=== PATIENT | female | born 1960 | race Caucasian/White ===

== ENCOUNTER → 2017-11-22 | Outpatient (CLI) | payer BC, OTHER ==
[~2017-11-22] MED LIST: ASPEC81 PO; CMD25 PO; LEVO-366 PO; OXYC-57 PO; XNX25 PO
== END | disposition home or self-care (01) ==
LOC: C.RDSM 15:06
PROVIDERS: ATTEND Orthopaedic Surgery Sports Medicine
DX: R52 Pain, unspecified (principal)

== ENCOUNTER 2022-11-07 05:05 | Observation (INO) ==
--- NOTE | 2022-10-05 12:52 | PAT Medication Instructions ---
Medication Instructions Date of Service October 05, 2022 Home Medications metformin 500 mg tablet 1 tab PO BID atorvastatin 20 mg tablet 20 mg PO HS escitalopram oxalate 20 mg tablet 20 mg PO HS apple cider vinegar 500 mg tablet 500 mg PO QAM hydroxyzine HCl 25 mg tablet 25 mg PO BID PRN Anxiety multivitamin 1 tab PO QAM DO NOT take the morning of surgery multivitamin 1 tab PO QAM apple cider vinegar 500 mg tablet 500 mg PO QAM metformin 500 mg tablet 1 tab PO BID hydroxyzine HCl 25 mg tablet 25 mg PO BID PRN Anxiety Take evening before surgery metformin 500 mg tablet 1 tab PO BID hydroxyzine HCl 25 mg tablet 25 mg PO BID PRN Anxiety atorvastatin 20 mg tablet 20 mg PO HS escitalopram oxalate 20 mg tablet 20 mg PO HS Other Notes If you have any questions please call us at [phone] or [phone] or [phone] or [phone]
--- NOTE | 2022-10-31 12:21 | Anesthesiology Consultation ---
Date of Service October 31, 2022 Assessment & Plan (1) Encounter for pre-operative examination: - Check BSG AM DOS - COVID screening: Per assessment on 10/31: No known COVID-19 positive contacts or current COVID-19 related symptoms. Travel screen negative. Patient vaccinated. At surgeon discretion if preop Covid testing being done. - Outpatient joint assessment: Pt currently scheduled for inpatient pathway. If surgeon requests review for outpatient joint pathway, patient is not recommended candidate for outpatient joint program from anesthesia standpoint. - Hx glidescope intubation: S/P Right TKA (04/23/18): Done under [place] > Glidescope intubation, ETT 7.5 at [facility]. No issues noted per post-op anesthesia progress note. - Patient acceptable risk for surgery pending surgeon-ordered PCP preop evaluation (Connie Stroud/Dr. Vazquez, appt 11/03). Chart Review Chart Review: Patient seen in Pre Admission Testing Teaching & Discussion Pre-Anesthesia Teaching/Discussion Notes: Instructed NPO after midnight before surgery,except medications with 15 cc of water. Medication instructions provided according to the PAT guidelines. History Surgery Operation Date: 11/07/22 07:00 Proposed Procedures p Left Total Knee Arthroplasty - Jonn Marcello Hernandez MD Operation Date: 11/07/22 07:00 Proposed Procedures p Left Total Knee Arthroplasty - Jonn Marcello Hernandez MD Height/Weight Height: 5 ft 6 in Weight: 117.1 kg Allergies Allergy/AdvReac Type Severity Reaction Status Date / Time celecoxib [From Celebrex] Allergy Severe Anaphylaxis Verified 10/05/22 11:18 Penicillins Allergy Severe Anaphylaxis Verified 10/05/22 11:18 Sulfa (Sulfonamide Allergy had Verified 10/05/22 11:18 Antibiotics) reaction to Celebrex duloxetine Allergy Severe Anaphylaxis Uncoded 10/31/22 09:00 pregabalin AdvReac Severe altered Uncoded 10/31/22 09:00 mental status Medications Home Medications Medication Instructions Recorded Confirmed Last Taken metformin 500 mg tablet 1 tab PO BID 04/02/18 10/05/22 04/21/18 22:00 atorvastatin 20 mg tablet 20 mg PO HS 04/23/18 10/05/22 Unknown escitalopram oxalate 20 mg tablet 20 mg PO HS 04/23/18 10/05/22 Unknown apple cider vinegar 500 mg tablet 500 mg PO QAM 10/05/22 10/05/22 Unknown hydroxyzine HCl 25 mg tablet 25 mg PO BID PRN Anxiety 10/05/22 10/05/22 Unknown multivitamin 1 tab PO QAM 10/05/22 10/05/22 Unknown Past Medical History Medical History Acid reflux Anxiety and depression Diabetes mellitus, type II NIDDM Dyslipidemia History of COVID-10 Jun 2021 > not hospitalized HTN (hypertension) Borderline, no meds Kidney stones passed on own Morbid obesity Pancreatic cyst Rheumatoid arthritis no meds Exercise / Class Metabolic Activity III < 4 Walking/Shop/Light housework Past Family History Family History Other Coronary heart disease Diabetes Past Surgical History Surgical History Fusion of spine ACDF History of anesthesia reaction "Awareness" with R MADELYN and dental procedures. "Very bad" post-op headaches - "every time" Patient states that the week following surgery, felt like she was very cold/chills and had hot flashes/hot feeling intermittently- occurs "every time." No intervention needed per patient/symptoms resolved within a week History of bilateral hip replacements History of tonsillectomy History of tooth extraction Hx of cervical spine surgery Hx of cholecystectomy Hx of oral surgery Hx of total knee replacement Right TKA (04/23/18): Done under [place] > Glidescope intubation, ETT 7.5 at [facility]. No issues noted per post-op anesthesia progress note. Past Anesthesia History No Family Hx of Anesthesia Complications (except sister- PONV) and Other "Awareness" with R MADELYN and dental procedures. "Very bad" post-op headaches - "every time" Patient states that the week following surgery, felt like she was very cold/chills and had hot flashes/hot feeling intermittently- occurs "every time." No intervention needed per patient/symptoms resolved within a week History of PONV No Hx of PONV and No Hx of Motion Sickness Social History Smoking Status: Former smoker Do You Dip or Chew Tobacco: No Smoking End Date: Quit 30 years ago Hx Alcohol Use: Yes Alcohol type: hard liquor alcohol intake frequency: a few times a month Hx Substance Use: No substance use type: does not use Review of Systems Patient denies chest pain, shortness of breath, fever, chills, cough, wheezing, palpitations. Physical Exam Vital Signs VITALS BP 128/84 P 79 TEMP 98.0 SP02 97%RA RESP 16 PHYSICAL Full cervical extension range of motion. Full TMJ range of motion. TMD 3.5 finger breaths Mallampati Score 1 Dentition: missing molars, + implants Lungs: clear throughout to auscultation Cardiac: regular rate and rhythm, no murmurs noted Spine: normal Carotid arteries: negative bruit Extremities: no LE edema Lab Results Anesthesia Preop Results Results Anesthesia Widget: WBC 9.65 K/ul (4.8-10.8) 10/31/22 Hgb 13.5 g/dl (12.0-16.0) 10/31/22 Hct 41.2 % (37.0-47.0) 10/31/22 Plt 242 K/uL (130-400) 10/31/22 Na 141 mmol/L (136-145) 10/31/22 K 4.2 mmol/L (3.5-5.1) 10/31/22 Cl 110 mmol/L (98-107) H 10/31/22 CO2 21 mmol/L (21-32) 10/31/22 BUN 19 mg/dl (6-23) 10/31/22 Creat 0.89 mg/dl (0.6-1.2) 10/31/22 Glucose Level 114 mg/dl (70-99(Fasting)) H 10/31/22 PT 10.3 Seconds (9.0-12.0) 10/31/22 PTT 27.1 Seconds (21.0-31.0) 10/31/22 INR 1.0 (0.9-1.1) 10/31/22 HA1c 7.1 % (4.5-5.6) H 10/31/22 Urine Color Yellow 10/31/22 Urine Appearance Clear (Clear) 10/31/22 Urine pH 6.0 (4.5-7.5) 10/31/22 Urine Specific [place] 1.026 (1.000-1.030) 10/31/22 Urine Protein Negative (Negative) 10/31/22 Urine Glucose (UA) Negative (Negative) 10/31/22 Urine Ketones Negative (Negative) 10/31/22 Urine Blood Negative (Negative) 10/31/22 Urine Nitrite Negative (Negative) 10/31/22 Urine Bilirubin Negative (Negative) 10/31/22 Urine Urobilinogen Negative (Negative) 10/31/22 Urine Leukocyte Esterase Negative (Negative) 10/31/22 Blood Type A Positive 10/31/22 Antibody Screen NEGATIVE 10/31/22 Testing Electrocardiogram Date: 10/31/22 Findings: + NSR @ (80) Cervical Spine Date: 10/31/22 FINDINGS: Anterior plate and screw fusion with discectomy changes noted at C5- C7. Degenerative bony fusion at the C4-C5 levels. Moderate to severe multilevel facet arthrosis. Straightening of the normal cervical lordosis. No acute fracture, subluxation or endplate erosion. No prevertebral edema. IMPRESSION: No acute fracture or subluxation. Degenerative and postoperative changes as above. COVID-19 Risk Screen Screening Information COVID-19 Screen Date: 10/31/22 Exposure 21 Days Family/Household +COVID Last 21 Days: No Exposure 10 Days Any COVID Exposure Last 10 Days: No Symptoms Last 10 Days Experienced COVID Sx Last 10 Days: No + COVID 0-90 Days COVID + in Last 0-90 Days: No
[2022-11-07] MEDS ORDERED: TRANEXAMIC ACID 1,000 MG **IV Intra-op IV SCH (06:00)
[2022-11-07] MEDS ORDERED: ROPIVACAINE 0.5% HCL/PF 150 MG, BUPIVACAINE 0.75% MPF 20 ML, EPINEPHrine 0.15 MG, Ketor... INFIL SCH (06:00)
[2022-11-07] MEDS ORDERED: LR 60ML/HR IV SCH (06:00)
[2022-11-07] MEDS ORDERED: VANCOMYCIN HCL 1,750 MG in SODIUM CHLORIDE 0.9% 250 ML IV SCH (06:00)
[2022-11-07] MEDS ORDERED: Scopolamine 1 MG TDSY TD SCH (06:00)
[2022-11-07] MEDS ORDERED: LR 500ML BOLUS, THEN 15ML/HR IV SCH (06:00)
[2022-11-07] MEDS ORDERED: VANCOMYCIN HCL 1,750 MG in SODIUM CHLORIDE 0.9% 500 ML IV SCH ×2 (06:00→17:45)
[2022-11-07] MEDS ORDERED: TRANEXAMIC ACID 1,000 MG **IV Pre-op IV SCH (06:00)
[2022-11-07] MEDS ORDERED: ROPIVACAINE 0.5% 5 MG/ML 30 ML VIAL ONE ×2 (06:23→12:01)
[2022-11-07] MEDS ORDERED: BUPIVACAINE 0.5 % 5 MG/1 ML PF 10ML VIAL ONE (06:23)
--- NOTE | 2022-11-07 06:35 | History & Physical Bridge Note ---
Date of Service November 07, 2022 History & Physical Bridge Note I have examined the patient, reviewed the History & Physical and in the interval since the performance of the History & Physical I have noted the following changes of clinical significance: no changes noted Patient is aware of the risks, is asymptomatic, and tested negative for COVID- 19.
[2022-11-07] MEDS ORDERED: MIDAZOLAM HCL 1 MG/ML 2ML VIAL ONE ×2 (06:44)
[2022-11-07] MEDS ORDERED: fentaNYL citrate PF 100 MCG/2 ML VIAL ONE (06:45)
[2022-11-07] MEDS ORDERED: ORTHO JOINT ANESTHETIC ONE (06:58)
[2022-11-07] MEDS ORDERED: ALBUTEROL 0.083% NEBU SOLN 3 ML VIAL INH PRN (07:11)
[2022-11-07] MEDS ORDERED: ATROPINE SULFATE 0.1 MG/ML 10ML SYR IV PRN ×2 (07:11→10:48)
[2022-11-07] MEDS ORDERED: ACETAMINOPHEN 1,000 MG/100 ML VIAL IV STA (07:11)
[2022-11-07] MEDS ORDERED: PROMETHAZINE HCL 12.5 MG in SODIUM CHLORIDE 0.9% 50 ML IV PRN (07:11)
[2022-11-07] MEDS ORDERED: LABETALOL HCL IV 5 MG/ML 20ML IV PRN (07:11)
[2022-11-07] MEDS ORDERED: ePHEDrine sulfate 50 MG/ML AMP IV PRN ×2 (07:11→10:48)
[2022-11-07] MEDS ORDERED: ONDANSETRON INJ 2 MG/ML 2 ML VIAL IV PRN ×2 (07:11→13:34)
[2022-11-07] MEDS ORDERED: KETAMINE 50 MG/5 ML SYRINGE ONE (07:31)
[2022-11-07] MEDS ORDERED: HYDROmorphone INJ 2 MG/ML SYR/VIAL ONE (07:32)
[2022-11-07] MEDS ORDERED: ONDANSETRON INJ 2 MG/ML 2 ML VIAL ONE (07:35)
[2022-11-07] MEDS ORDERED: PROPOFOL IV EMULSION 10 MG/ML 20 ML VIAL IV ONE (07:35)
[2022-11-07] MEDS ORDERED: LIDOCAINE 2% 20 MG/ML 5 ML SYR IV ONE (07:35)
[2022-11-07] MEDS ORDERED: DEXAMETHASONE SOD INJ 4 MG/ML VIAL ONE (07:35)
[2022-11-07] MEDS ORDERED: NEOSTIGMINE METHYLSULFATE 1 MG/ML 10ML VIAL ONE (07:37)
[2022-11-07] MEDS ORDERED: GLYCOPYRROLATE 0.2 MG/ML VIAL ONE (07:37)
[2022-11-07] MEDS ORDERED: ROCURONIUM BROMIDE 10 MG/ML 5 ML VIAL IV ONE (07:37)
--- NOTE | 2022-11-07 09:48 | Post Operative Brief Note ---
Immediate Post Op Note v1 Date of Surgery November 07, 2022 Pre & Post Diagnosis Operation Date: 11/07/22 07:00 Pre-Op Diagnosis: Left Knee Osteoarthritis Post-Op Diagnosis: Left Knee Osteoarthritis I identified the patient and participated in the time-out.: Yes Procedure Operation Date: 11/07/22 07:00 Actual Procedures p Left Total Knee Arthroplasty(Left) - Jonn Hernandez MD Surgeon Jonn Hernandez MD Program Eligibility Specialist Dov Lui PA-C & Starr Rodriguez DO Estimated Blood Loss 50 Findings Consistent with Post-Op Diagnosis Fluids 1400 cc Specimens Left knee contents Anesthesia Type General Complications none
--- NOTE | 2022-11-07 09:48 | Operative Report ---
Post Operative Report Pre & Post Diagnosis Operation Date: 11/07/22 07:00 Pre-Op Diagnosis: Left Knee Osteoarthritis Post-Op Diagnosis: Left Knee Osteoarthritis I identified the patient and participated in the time-out.: Yes Procedure Operation Date: 11/07/22 07:00 Actual Procedures p Left Total knee replacement, imageless computer assisted navigation (Left) - Jonn Hernandez MD Surgeon Jonn Hernandez MD Director Workforce Management Dov Lui PA-C & Starr Rodriguez DO Estimated Blood Loss 50 Findings See Below Examined Under Anesthesia: ROM -- There was 0 degrees to 125 degrees of flexion Ligamentous examination -- revealed stable Andressa, posterior drawer, varus and valgus stress at 0 and 30 degrees. [place] Grade IV changes of medial & Patellofemoral compartments. Grade II- III changes lateral compartment Fluids 1400 cc Specimens Left knee contents Anesthesia Type General Complications none Indications This is a 62-year-old female who has clinical and radiographic findings consiste nt with osteoarthritis of the a left knee. I recommended that a left total knee replacement be performed. The patient understands the risks of surgery, which include but not limited to: bleeding, infection, re-operation, damage to nerves and arteries, continued knee pain, knee stiffness, DVT, and . The patient understands all of these instructions and explanations, all of his questions hav e been satisfactorily addressed and the patient has elected to proceed. Informed consent was signed. Description of Procedure IMPLANTS: 1. Femur: Triathlon #4 Left PS. 2. Tibia: Triathlon #3 [place]. 3. Insert: Triathlon #3 x 9 mm PS X3 poly. 4. Patella: Triathlon S27 x 8 mm X3 poly. 5.Palacos + Gentamicin cement. Dov Lui PA-C is assisting with positioning, retracting, and closure due to fellow (Starr Rodriguez DO) not available until we started preparing the femur. Procedure: The patient was taken to the Operating Room and placed in the supine position after general anesthesia was administered. My initials and a multidisciplinary time-out were used to identify the left leg as the correct operative limb. A tourniquet was placed high in the thigh. Prior to the incision, intravenous Vancomycin was given. The left leg was then prepped and draped in a standard sterile fashion. An Esmarch was used to exsanguinate the leg and the tourniquet was inflated to 250 mmHg. The planned mid-line 20 cm incision was created exposing the extensor mechanism. The medial parapatellar arthrotomy was made and the patella was everted. The patella was addressed first. It was prepared by reaming from 24 mm down to 14 mm. An S27 button was found to fit best. The peg holes were made in the standard fashion. The femur was addressed next and using computer assisted OrthoAlign with 3 degrees of flexion and 0 degrees of valgus, removing 9 mm in the standard fashion for the distal cut. The cut was made and the 4-in-1 cutting block for a size 4 femur was placed. These cuts and the cuts to place the box were made in the standard fashion. Our attention was then drawn to the tibia cut with using imageless computer assisted OrthoAlign, taking 2 mm from the medial low side. There was sufficient extension and flexion gap to fit a 9 mm spacer. A #3 Tibial baseplate fit well. A trial with a 9 mm spacer showed excellent stability in both flexion and extension, with good ligament balance, and thumbs free patellar tracking. Range of motion of 0-130 degrees. The tibial baseplate was prepped for the keel and stem. All surfaces were copiously irrigated prior to placement of the components. The femoral component followed by Tibial baseplate were cemented in place and the 9 mm X3 poly was placed. Next, the patellar button was placed using a second batch of cement. Once the cement had cured, the range of motion and stability were unchanged. The tourniquet was deflated. Hemostasis was obtained. 90 ml of total knee cocktail were injected into the soft tissues and periosteum. The extensor mechanism was closed with 1-0 Vicryl and 0 Stratafix with the knee bent approximately 60 degrees in a standard fashion. The subcutaneous layer was closed with 3-0 Vicryl. The skin was closed with Zipline and shield. The limb was cleaned and dried. 4x4 dressing was placed over top followed by ABDs, sterile Webril, and a foot to thigh Chente bandage. The patient was then transferred to the Recovery Room in stable condition. The sponge and needle counts were correct. POST-OP INSTRUCTIONS: The patient will be WBAT. The patient will be admitted to the hospital. Labs will be obtained during the stay. DVT prophylaxis will included aspirin for 6 weeks, TEDs, and mechanical foot pumps. The dressing will be changed prior to their discharge or postop day #2 and covered with a Silverlon dressing, whichever comes first as long as the incision as dry. I attest to the content of the Intraoperative Record and any orders documented therein. Any exceptions are noted below.
--- NOTE | 2022-11-07 10:12 | Anesthesiology Progress Note ---
Date of Service November 07, 2022 Anesthesia Post Procedure Vital Signs Vital Signs: Temp Pulse Resp BP Pulse Ox O2 Del Method 11/07/22 05:47 36.8 C 85 20 164/96 H 94 Room Air Transfer of Care Handoff Completed per policy Notes Mental Status: alert / awake / arousable Patient Amnestic to Procedure: Yes Nausea / Vomiting: adequately controlled Pain: adequately controlled Airway Patency, RR, SpO2: stable & adequate BP & HR: stable & adequate Hydration State: stable & adequate Anesthetic Complications: no major complications apparent and Pt Satisfied with anesthetic care
--- NOTE | 2022-11-07 10:20 | Operative Report ---
Post Operative Report Pre & Post Diagnosis Operation Date: 11/07/22 07:00 Pre-Op Diagnosis: Left Knee Osteoarthritis Post-Op Diagnosis: Left Knee Osteoarthritis I identified the patient and participated in the time-out.: Yes Procedure Operation Date: 11/07/22 07:00 Actual Procedures p Left Total Knee Arthroplasty(Left) - Jonn Marcello Hernandez MD Surgeon David Obstetrical Tech Dov Lui PA-C & Starr Rodriguez DO Estimated Blood Loss 50 Findings Consistent with Post-Op Diagnosis Specimens See attending dictation Disposition Accompanied Patient To Recovery: Yes Disposition: Recovery Room Description of Procedure Patient was taken to the operating room where anesthesia was administered. Patient was prepped and draped in the usual sterile fashion. Please see attending's operative report for specifics of the procedure. I was present for the entire case from initial patient positioning through final wound closure. Assistance was provided in tissue retraction, hemostasis, and final wound closure. Patient was taken to the recovery room in satisfactory condition. I attest to the content of the Intraoperative Record and any orders documented therein. Any exceptions are noted below.
[2022-11-07] MEDS: fentaNYL citrate PF 100 MCG/2 ML VIAL IV PRN ×4 (10:23→10:38)
[2022-11-07] MEDS ORDERED: ACETAMINOPHEN 1000 MG/100 ML IV IV ONE (10:37)
[2022-11-07] MEDS ORDERED: HYDROmorphone INJ 1 MG/ML SYRINGE ONE (10:43)
[2022-11-07] MEDS: HYDROmorphone INJ 1 MG/ML SYRINGE IV PRN ×6 (10:44→11:15)
[2022-11-07] MEDS ORDERED: KETOROLAC 30 MG/ML VIAL IV ONE (10:48)
[2022-11-07] MEDS ORDERED: HYDROmorphone Bolus from PCA IV STA (11:14)
[2022-11-07] MEDS ORDERED: HYDROmorphone Bolus from PCA IV PRN (11:14)
[2022-11-07] MEDS ORDERED: NALOXONE HCL 0.4 MG/1 ML VIAL/CARP IV PRN ×2 (11:14→13:34)
[2022-11-07] MEDS ORDERED: HYDROmorphone PCA 30 MG/30 ML IV PRN (11:14)
--- NOTE | 2022-11-07 12:18 | Orthopedic Progress Note ---
Date of Service November 07, 2022 Assessment & Plan (1) Rheumatoid arthritis: Plan: POD #0 s/p L TKA, seen in PACU as she was having severe pain. Resume diet. WBAT LLE. OOB to chair. Adjusted pain control, added OxyContin 10mg BID x 3days, Toradol 15 mg q6h x 3 days, continue Oxycodone and Tylenol as written. Anesthesia to provide adductor block, patient is now agreeable. Check labs tomorrow. DVT prophylaxis: TEDs 3 weeks, foot pumps while in hospital, Lovenox 30 mg BID x 3weeks start tonight, followed by ASA 81 mg BID for 3 weeks. PT/OT. Hospitalist consult for medical management. Pharmacy consult for glycemic control. D/C planning. Present on Admission?: Yes Subjective Severe left knee pain Physical Exam Physical Exam: LLE: Sensation to light touch intact. Moving toes and ankle up & down. BCR < 2 sec. Calf soft and non-tender. Dressing clean, dry, intact. Results & Data Vital Signs (Past 12 Hours) Vital Signs Temp Pulse Pulse Resp BP Pulse Ox O2 Del Method 11/07/22 11:55 99 H 13 101/82 93 Nasal Cannula 11/07/22 11:45 93 H 16 164/72 H 97 Nasal Cannula 11/07/22 12:05 102 H 22 149/104 H 93 Nasal Cannula 11/07/22 11:35 95 H 19 164/77 H 96 Nasal Cannula 11/07/22 11:25 92 H 15 174/77 H 95 Nasal Cannula 11/07/22 11:15 88 15 171/78 H 94 Nasal Cannula 11/07/22 11:05 37.2 C 83 15 165/83 H 95 Oxymask 11/07/22 10:55 37.2 C 84 17 176/86 H 95 Oxymask 11/07/22 10:45 37.2 C 104 H 21 174/114 H 96 Oxymask 11/07/22 10:35 37.2 C 103 H 11 L 188/108 H 96 Oxymask 11/07/22 10:25 37.2 C 101 H 14 192/104 H 96 Oxymask 11/07/22 10:16 37.2 C 109 H 15 183/118 H 96 Oxymask 11/07/22 05:47 36.8 C 85 20 164/96 H 94 Room Air O2 Flow Rate 11/07/22 11:55 2 11/07/22 11:45 5 11/07/22 12:05 2 11/07/22 11:35 3 11/07/22 11:25 3 11/07/22 11:15 3 11/07/22 11:05 5 11/07/22 10:55 5 11/07/22 10:45 5 11/07/22 10:35 8 11/07/22 10:25 8 11/07/22 10:16 8 11/07/22 05:47 Diagnostic Findings Laboratory Results ESR 62 mm/hr (0-30) H 11/07/22 05:31 POC Glucose 171 mg/dl (70-99) H 11/07/22 10:19 SARS-CoV-2, RNA, NAAT NEGATIVE (NEGATIVE) 11/07/22 05:28 Reviewed AP and Lateral Left knee expected findings left cemented TKA.
--- NOTE | 2022-11-07 12:38 | Anesthesiology Progress Note ---
Date of Service November 07, 2022 Assessment & Plan Admission and Anticipated Discharge Date Admission Date: Addyctor canail block done postop, 30 cc .5% Ropivacaine. Tolerated well, great pain releif Subjective Patient was fully consented and consent signed by for adductor canal block postop. Physical Exam Vital Signs: Last Vital Signs Temp 37.2 C 11/07/22 11:05 Pulse 97 H 11/07/22 12:15 Resp 12 11/07/22 12:15 BP 146/70 H 11/07/22 12:15 Pulse Ox 96 11/07/22 12:15 O2 Del Method Nasal Cannula 11/07/22 12:15 O2 Flow Rate 2 11/07/22 12:15 Neck: normal visual inspection Respiratory: normal respiratory effort; no respiratory distress Auscultation: lungs clear to auscultation bilaterally Cardiovascular: Rate/Rhythm: regular rate and regular rhythm Psychiatric: Orientation: alert and oriented x 3 Results & Data ([facility]) Medications Administered Fentanyl Citrate (Fentanyl Citrate Pf 100 Mcg/2 Ml Vial) 25 mcg IV Q5M PRN PRN Reason: PACU Use Only-Pain Stop: 11/07/22 15:11 Last Admin: 11/07/22 10:38 Dose: 25 mcg Documented By: [facility] Admin: 11/07/22 10:33 Dose: 25 mcg Documented By: [facility] Admin: 11/07/22 10:28 Dose: 25 mcg Documented By: [facility] Admin: 11/07/22 10:23 Dose: 25 mcg Documented By: [facility] Hydromorphone HCl (Hydromorphone Inj 1 Mg/Ml Syringe) 0.25 mg IV Q5M PRN PRN Reason: PACU Use Only-Pain Stop: 11/07/22 18:52 Last Admin: 11/07/22 11:15 Dose: 0.25 mg Documented By: [facility] Admin: 11/07/22 11:05 Dose: 0.25 mg Documented By: [facility] Admin: 11/07/22 11:00 Dose: 0.25 mg Documented By: [facility] Admin: 11/07/22 10:54 Dose: 0.25 mg Documented By: [facility] Admin: 11/07/22 10:49 Dose: 0.25 mg Documented By: [facility] Admin: 11/07/22 10:44 Dose: 0.25 mg Documented By: [facility] Lactated Ringer's (Lr) 1,000 mls @ 60 mls/hr IV .[id number] JENNIFER Stop: 11/07/22 22:39 Last Admin: 11/07/22 05:45 Dose: Not Given Documented By: ARACELY Tranexamic Acid (Tranexamic Acid / 0.7% Nacl) 1,000 mg in 100 mls @ 600 mls/hr IV TODAY@0600 JENNIFER Stop: 11/07/22 18:00 Last Admin: 11/07/22 07:14 Dose: 600 mls/hr Documented By: MAXIMUS Tranexamic Acid (Tranexamic Acid / 0.7% Nacl) 1,000 mg in 100 mls @ 600 mls/hr IV TODAY@0600 JENNIFER Stop: 11/07/22 18:00 Last Admin: 11/07/22 09:17 Dose: 600 mls/hr Documented By: GISEL Lactated Ringer's (Lr) 1,000 mls @ 15 mls/hr IV .[id number] JENNIFER Stop: 11/07/22 18:00 Last Infusion: 11/07/22 07:14 Dose: 0 mls/hr Documented By: Admin: 11/07/22 05:40 Dose: 15 mls/hr Documented By: ARACELY Vancomycin HCl 1,750 mg/ (Sodium Chloride) 535 mls @ 200 mls/hr IV PREOP JENNIFER Stop: 11/08/22 05:59 Last Admin: 11/07/22 05:44 Dose: 200 mls/hr Documented By: ARACELY Labetalol HCl (Labetalol Hcl Iv 5 Mg/Ml 20ml) 5 mg IV Q5M PRN PRN Reason: PACU Use-SBP>160 or DBP>100 Stop: 11/07/22 15:12 Last Admin: 11/07/22 10:47 Dose: 5 mg Documented By: AUDI Co-signed By: FARHAD Scopolamine (Scopolamine 1 Mg Tdsy) 1 mg TD PREOP JENNIFER Stop: 11/07/22 18:00 Last Admin: 11/07/22 06:25 Dose: 1 mg Documented By: ARACELY Results 6 Minute Walk: No Data to Display
--- NOTE | 2022-11-07 12:39 | Anesthesiology Progress Note ---
Date of Service November 07, 2022 Anesthesia Post Procedure Vital Signs Vital Signs: Temp Pulse Pulse Resp BP Pulse Ox O2 Del Method 11/07/22 12:30 94 H 12 167/84 H 93 Nasal Cannula 11/07/22 11:55 99 H 13 101/82 93 Nasal Cannula 11/07/22 11:45 93 H 16 164/72 H 97 Nasal Cannula 11/07/22 12:15 97 H 12 146/70 H 96 Nasal Cannula 11/07/22 12:05 102 H 22 149/104 H 93 Nasal Cannula 11/07/22 11:35 95 H 19 164/77 H 96 Nasal Cannula 11/07/22 11:25 92 H 15 174/77 H 95 Nasal Cannula 11/07/22 11:15 88 15 171/78 H 94 Nasal Cannula 11/07/22 11:05 37.2 C 83 15 165/83 H 95 Oxymask 11/07/22 10:55 37.2 C 84 17 176/86 H 95 Oxymask 11/07/22 10:45 37.2 C 104 H 21 174/114 H 96 Oxymask 11/07/22 10:35 37.2 C 103 H 11 L 188/108 H 96 Oxymask 11/07/22 10:25 37.2 C 101 H 14 192/104 H 96 Oxymask 11/07/22 10:16 37.2 C 109 H 15 183/118 H 96 Oxymask 11/07/22 05:47 36.8 C 85 20 164/96 H 94 Room Air O2 Flow Rate 11/07/22 12:30 2 11/07/22 11:55 2 11/07/22 11:45 5 11/07/22 12:15 2 11/07/22 12:05 2 11/07/22 11:35 3 11/07/22 11:25 3 11/07/22 11:15 3 11/07/22 11:05 5 11/07/22 10:55 5 11/07/22 10:45 5 11/07/22 10:35 8 11/07/22 10:25 8 11/07/22 10:16 8 11/07/22 05:47 Pain Intensity Left Knee: Pain Intensity: 7 Transfer of Care Handoff Completed per policy Notes Mental Status: alert / awake / arousable Patient Amnestic to Procedure: Yes Nausea / Vomiting: adequately controlled Pain: adequately controlled Airway Patency, RR, SpO2: stable & adequate BP & HR: stable & adequate Hydration State: stable & adequate Anesthetic Complications: no major complications apparent and Pt Satisfied with anesthetic care
[2022-11-07] MEDS ORDERED: hydrOXYzine HCl 25 MG TAB PO PRN (13:34)
[2022-11-07] MEDS ORDERED: VANCOMYCIN CONSULT ACTIVE PRN (13:34)
[2022-11-07] MEDS ORDERED: bisacodyL 10 MG SUPP PR PRN (13:34)
[2022-11-07] MEDS ORDERED: HYDROmorphone INJ 0.5 MG/0.5 ML SYR IV PRN (13:34)
[2022-11-07] MEDS ORDERED: KETOROLAC TROMETHAMINE 15 MG/ML VIAL IV PRN (13:34)
[2022-11-07] MEDS ORDERED: MAGNESIUM HYDROXIDE SUSP 30 ML UDC PO PRN (13:34)
[2022-11-07] MEDS ORDERED: HYDROmorphone INJ 1 MG/ML SYRINGE IV PRN (13:34)
[2022-11-07] MEDS ORDERED: PHARMACY GLYCEMIC MGMT CONSULT PRN (13:34)
[2022-11-07] MEDS ORDERED: traMADol HCL 50 MG TABLET PO PRN (13:34)
[2022-11-07] MEDS: SODIUM CHLORIDE 0.9% 1000ML 1,000 ML IV SCH ×2 (13:49→13:56)
[2022-11-07] MEDS: oxyCODONE HCL 10 MG TABCR (OxyCONTIN) PO SCH (13:56)
[2022-11-07] MEDS ORDERED: LANTUS PER UNIT CHARGE SC ONE (14:15)
--- NOTE | 2022-11-07 14:20 | Pharmacy Report ---
Pharmacy Glycemic Short Note 2 - Date of Service November 07, 2022 - Glycemic Short BSG Results (Last 24 hours): 11/07/22 11/07/22 11/07/22 05:54 10:19 13:41 POC Glucose 137 H 171 H 184 H OUTPATIENT ANTIDIABETIC REGIMEN: * metformin ASSESSMENT: * 62 year old s/p L TKA - type 2 diabetic managed on metformin at home. Pharmacy consulted for glycemic management. * Patient received IV dexamethasone intraoperatively therefore anticipate steroid induced hyperglycemia. Postop BSGs elevated 170-180s - will give one time dose of Lantus 0.2 units/kg to help cover steroid effects. Plan to start novolog stress 2/3 PLAN FOR INPATIENT GLYCEMIC CONTROL: * Hold outpatient oral diabetes medications * Basal insulin * Lantus 20 units x 1 * Bolus insulin * NovoLog per scale ACHS or Q6hrs while NPO * Goal Range: Low 110 mg/dL - High 140 mg/dL * Correction Factor: 15 mg/dL/unit * Nutritional / Prandial insulin per carb ratio of 1 unit per 6 grams CHO consumed
--- NOTE | 2022-11-07 14:26 | Hospitalist Consultation ---
Date of Consultation November 07, 2022 Assessment & Plan (1) S/P total knee arthroplasty: - Pain management, bowel regimen and DVT ppx per the primary team - PT/OT consults, pt is planning on outpatient therapy - Follow am CBC to monitor for acute blood loss hemoglobin is 13.5 (2) Diabetes mellitus, type II: - ISS with accuchecks achs - Last A1C 7.1 on 10/23/22 - Holding metformin, last Trulicity on 10/30, she did not take it yesterday as she was instructed not to take any medications 48 hours prior to surgery. (3) Morbid obesity: - Diet and exercise to be encouraged throughout hospital stay, BMI of 41.4 (4) HTN (hypertension): -BP is elevated at 160s/80, patient is not on any antihypertensive at home, monitor, possible that she may need medication, follow-up with PCP after discharge (5) Dyslipidemia: - Cont atorvastatin 20 mg HS (6) Anxiety and depression: - Cont hydroxyzine 25 mg BID prn and lexapro 20 mg daily DVT ppx: teds, scds CODE: FULL CODE Dispo: From home Thank you for involving us in the care of Ms. Mcnulty. If you have any questions or concerns please do not hesitate to call. At this time medicine will follow along. A total of 37 minutes were spent with greater than 50% of that time face to face with the patient, personally reviewing all current laboratories, imaging studies, past medication reconciliation, outpatient chart review, and discussion with specialists to collaborate care for the patient with attending. Please see attending documentation for corrections and/or additions. Supervising Physician Co-Signing Physician Notes Patient was seen and examined independently. chart reviewed. Case discussed with NICOLE History of Present Illness Reason for Consultation: Medical management Requesting Physician: Dr. Hernandez Attending Physician: Jonn Hernandez MD History of Present Illness This is a 62-year-old female with PMHx of DM type II, obesity, MDD, multiple previous surgical procedures, who presents to the hospital for an elective left total knee arthroplasty by Dr. Hernandez on 11/07/2022. Patient reports doing well, her sister is present at bedside. She lives at home with her but will have extra help from her sister when she goes home. Reports having her other knee (the right knee) replaced previously so has a good idea of what to anticipate after having her left knee operated on today. Had recent bowel movement yesterday, reports that she has some phlegm and a cough status post intubation/surgery but that it is improving with lifesavers and water. Her pain is well controlled, denies any numbness, is able to move her ankles and toes without difficulty. Allergies Allergy/AdvReac Type Severity Reaction Status Date / Time celecoxib [From Celebrex] Allergy Severe Anaphylaxis Verified 11/07/22 05:34 Penicillins Allergy Severe Anaphylaxis Verified 11/07/22 05:34 Sulfa (Sulfonamide Allergy had Verified 11/07/22 05:34 Antibiotics) reaction to Celebrex duloxetine Allergy Severe Anaphylaxis Uncoded 11/07/22 05:34 pregabalin AdvReac Severe altered Uncoded 11/07/22 05:34 mental status Home Medications Medication Instructions Recorded Confirmed Type metformin 500 mg tablet 1 tab PO BID 04/02/18 11/07/22 History atorvastatin 20 mg tablet 20 mg PO HS 04/23/18 11/07/22 History escitalopram oxalate 20 mg tablet 20 mg PO HS 04/23/18 11/07/22 History apple cider vinegar 500 mg tablet 500 mg PO QAM 10/05/22 11/07/22 History hydroxyzine HCl 25 mg tablet 25 mg PO BID PRN Anxiety 10/05/22 11/07/22 History multivitamin 1 tab PO QAM 10/05/22 11/07/22 History dulaglutide 0.75 mg/0.5 mL 0.75 mg subcut WK 11/07/22 11/07/22 History subcutaneous pen injector (Trulicity) Patient History Medical History (Updated 11/07/22 @ 16:08 by Marcy Trotter PA-C) Acid reflux Anxiety and depression Diabetes mellitus, type II NIDDM Dyslipidemia History of COVID-10 Jun 2021 > not hospitalized HTN (hypertension) Borderline, no meds Kidney stones passed on own Morbid obesity Pancreatic cyst Rheumatoid arthritis no meds Surgical History Fusion of spine ACDF History of anesthesia reaction "Awareness" with R MADELYN and dental procedures. "Very bad" post-op headaches - "every time" Patient states that the week following surgery, felt like she was very cold/chills and had hot flashes/hot feeling intermittently- occurs "every time." No intervention needed per patient/symptoms resolved within a week History of bilateral hip replacements History of tonsillectomy History of tooth extraction Hx of cervical spine surgery Hx of cholecystectomy Hx of oral surgery Hx of total knee replacement Right TKA (04/23/18): Done under [place] > Glidescope intubation, ETT 7.5 at [facility]. No issues noted per post-op anesthesia progress note. Family History Other Coronary heart disease Diabetes Social History Smoking Status: Former smoker Smoking End Date: Quit 30 years ago; Second Hand Exposure: No; Do You Dip or Chew Tobacco: No; Tobacco Cessation Education Requested by Patient: No Hx Alcohol Use: Yes Alcohol type: hard liquor Hx Substance Use: No Preferred Language: Macedonian Communication Ability: Effective Visual Impairment: No Limitations Senior Analyst Required: No Beliefs That Will Affect Care: None Current Living Situation: Spouse Other Information That Helps Us Care for You: No Feels Safe at Home: Yes Safety Concerns: Feels Safe At This Time Assistive Devices: Cane and Walker Review of Systems Review of Systems: Constitutional: No fever, sweats or chills Eyes: No diplopia, no worsening or blurred vision ENT: normal hearing, no trouble swallowing Respiratory: No cough, sputum, dyspnea at rest or on exertion Cardiovascular: No chest pain, tightness or palpitations Abdomen: No pain, nausea, vomiting, diarrhea or constipation Musculoskeletal: No joint pain, calf pain, swelling Neurologic: No weakness, numbness/tingling, or balance problems Psychiatric: No anxiety or depression Skin: No rash or itch Physical Exam Physical Exam: General: awake, alert, no apparent distress, + obese Head: Normocephalic, atraumatic ENT: PERRL, EOMI, no pharyngeal exudate, mucous membranes moist Chest: Clear to auscultation, on room air, no adventitious breath sounds Cardiac: Regular rate and rhythm, no murmur, no JVD, normal peripheral pulses, good capillary refill Abdominal: NABS x 4 quadrants, soft, nondistended, nontender to palpation, no rebound or guarding Extremities: Right leg in Chente wrap, ice pack in place, otherwise normal inspection, no peripheral edema or erythema, calfs nontender to palpation Psych: Normal mood and affect Neuro: AAO x 3, strength intact bilaterally and rated 5/5, no motor deficits, speech is clear, no peripheral sensory deficits Results & Data Results & Data Vital Signs (Past 12 Hours) Vital Signs Temp Pulse Pulse Resp BP Pulse Ox O2 Del Method 11/07/22 14:02 36.5 C 90 18 175/91 H 96 Nasal Cannula 11/07/22 13:06 37.0 C 101 H 17 144/77 H 96 Nasal Cannula 11/07/22 12:45 98 H 12 148/86 H 97 Nasal Cannula 11/07/22 12:30 94 H 12 167/84 H 93 Nasal Cannula 11/07/22 11:55 99 H 13 101/82 93 Nasal Cannula 11/07/22 11:45 93 H 16 164/72 H 97 Nasal Cannula 11/07/22 12:15 97 H 12 146/70 H 96 Nasal Cannula 11/07/22 12:05 102 H 22 149/104 H 93 Nasal Cannula 11/07/22 11:35 95 H 19 164/77 H 96 Nasal Cannula 11/07/22 11:25 92 H 15 174/77 H 95 Nasal Cannula 11/07/22 11:15 88 15 171/78 H 94 Nasal Cannula 11/07/22 11:05 37.2 C 83 15 165/83 H 95 Oxymask 11/07/22 10:55 37.2 C 84 17 176/86 H 95 Oxymask 11/07/22 10:45 37.2 C 104 H 21 174/114 H 96 Oxymask 11/07/22 10:35 37.2 C 103 H 11 L 188/108 H 96 Oxymask 11/07/22 10:25 37.2 C 101 H 14 192/104 H 96 Oxymask 11/07/22 10:16 37.2 C 109 H 15 183/118 H 96 Oxymask 11/07/22 05:47 36.8 C 85 20 164/96 H 94 Room Air O2 Flow Rate 11/07/22 14:02 3 11/07/22 13:06 4 11/07/22 12:45 2 11/07/22 12:30 2 11/07/22 11:55 2 11/07/22 11:45 5 11/07/22 12:15 2 11/07/22 12:05 2 11/07/22 11:35 3 11/07/22 11:25 3 11/07/22 11:15 3 11/07/22 11:05 5 11/07/22 10:55 5 11/07/22 10:45 5 11/07/22 10:35 8 11/07/22 10:25 8 11/07/22 10:16 8 11/07/22 05:47
[2022-11-07] MEDS: INSULIN ASPART PER UNIT CHARGE SC SCH ×3 (14:32→21:07)
[2022-11-07] MEDS: ACETAMINOPHEN 500 MG TAB PO SCH ×2 (14:38→21:09)
[2022-11-07] MEDS: ALLERGY Noted to ORDERED Medication SCH ×3 (14:45→14:47)
--- NOTE | 2022-11-07 15:19 | XRay Report ---
XR knee LT 1 or 2V routine CLINICAL HISTORY: Surgical Post Op TECHNIQUE: 2 views of the left knee were obtained. Comparison: Comparison is made to knee radiograph 09/18/2022 FINDINGS: Patient is status post total knee arthroplasty with expected postsurgical changes including soft tiss ue swelling and subcutaneous emphysema. No periarticular lucency or hardware fracture is seen. IMPRESSION: Expected postoperative appearance status post placement of total knee arthroplasty. ACT 112: Negative or not required by law. Electronically signed by: Bhavin Crook M.D. 11/07/2022 3:18 PM
[2022-11-07] MEDS: oxyCODONE HCL IR 5 MG TAB (IMMEDIATE RELEASE) PO PRN ×2 (16:35→21:08)
[2022-11-07] MEDS: Scopolamine CHECK PATCH PLACEMENT SCH (16:36)
[2022-11-07] MEDS: ASCORBIC ACID 500 MG TAB PO SCH (16:57)
[2022-11-07] MEDS: FERROUS GLUCONATE 324 MG TAB PO SCH (16:57)
[2022-11-07] MEDS: DOCUSATE SODIUM 100 MG CAP PO SCH (19:32)
[2022-11-07] MEDS ORDERED: ESCITALOPRAM OXALATE 20 MG TAB PO SCH (21:00)
[2022-11-07] MEDS ORDERED: SENNA 8.6 MG TAB PO SCH (21:00)
[2022-11-07] MEDS ORDERED: ATORVASTATIN 20 MG TAB PO SCH (21:00)
[2022-11-07] MEDS ORDERED: ASPIRIN 81 MG ECTAB PO SCH (21:00)
[2022-11-07] MEDS ORDERED: metFORMIN HCL 500 MG TAB PO SCH (21:00)
[2022-11-07] MEDS: ENOXAPARIN INJ 30 MG/0.3 ML SYR SQ SCH (21:10)
[2022-11-08] MEDS ORDERED: INSULIN ASPART PER UNIT CHARGE SC SCH
[2022-11-08] MEDS: Scopolamine CHECK PATCH PLACEMENT SCH ×2 (00:05→07:58)
[2022-11-08] MEDS: SODIUM CHLORIDE 0.9% 1000ML 1,000 ML IV SCH ×2 (00:06→09:40)
[2022-11-08] MEDS: oxyCODONE HCL 10 MG TABCR (OxyCONTIN) PO SCH (00:51)
[2022-11-08] MEDS: ACETAMINOPHEN 500 MG TAB PO SCH (05:27)
[2022-11-08] MEDS: oxyCODONE HCL IR 5 MG TAB (IMMEDIATE RELEASE) PO PRN ×2 (05:31→09:58)
[2022-11-08] MEDS: ASCORBIC ACID 500 MG TAB PO SCH (07:55)
[2022-11-08] MEDS: FERROUS GLUCONATE 324 MG TAB PO SCH (07:55)
--- NOTE | 2022-11-08 07:55 | Hospitalist Progress Note ---
Date of Service November 08, 2022 Assessment & Plan (1) S/P total knee arthroplasty: Plan: - Pain management, bowel regimen and DVT ppx per the primary team - PT/OT consults, pt is planning on outpatient therapy - Follow am CBC to monitor for acute blood loss hemoglobin is 13.5 - current Hgb 12.7 (minimal blood loss, expected post-op) Mild ELIZABETH - Cr elev at 1.2 - toradol stopped by surg. team and recommend no NSAIDs after discharge for now - encouraged plenty of po fluid intake - anticipate this to resolve - pcp follow up scheduled for 11/13 and recommend to repeat BMP at that time. (2) Diabetes mellitus, type II: Plan: - ISS with accuchecks achs - Last A1C 7.1 on 10/23/22 - Holding metformin, last Trulicity on 10/30 - resume outpt meds on DC (3) Morbid obesity: Plan: - Diet and exercise to be encouraged throughout hospital stay, BMI of 41.4 (4) HTN (hypertension): Plan: - current BP 146/79 - follow up w/ pcp (5) Dyslipidemia: Plan: - Cont atorvastatin 20 mg HS (6) Anxiety and depression: Plan: - Cont hydroxyzine 25 mg BID prn and lexapro 20 mg daily DVT ppx: teds, scds CODE: FULL CODE Dispo: From home Thank you for involving us in the care of Ms. Mcnulty. If you have any questions or concerns please do not hesitate to call. Admission and Anticipated Discharge Date Admission Date: November 07, 2022 Subjective Pt seen in follow up med consult pt s/p l knee surgery, now w/ mild ELIZABETH Laying in bed, in no acute distress Denies any fevers chills chest pain shortness of breath Denies any abdominal pain Reports urinating without any difficulty Discussed her mildly elevated creatinine, and recommended no NSAIDs after discharge. PCP and BMP follow-up, patient understanding and in agreement. Recommended also P.o. fluid intake. Family at the bedside and also updated. Review of Systems Review of Systems: All systems reviewed & are unremarkable except as noted in Subjective Physical Exam Physical Exam: General: awake, alert, no apparent distress, + obese F Head: Normocephalic, atraumatic ENT: PERRL, EOMI, mucous membranes moist Chest: Clear to auscultation, on room air, no adventitious breath sounds Cardiac: Regular rate and rhythm, no murmur Abdominal: NABS x 4 quadrants, soft, nondistended, nontender to palpation Extremities: LLE Chente wrap, ice pack in place, otherwise normal inspection, no peripheral edema or erythema Psych: Normal mood and affect Neuro: AAO x 3, speech is clear, no facial asymmetry, answers appropriately, moves extremities Results & Data Results & Data Vital Signs (Past 12 Hours) Vital Signs Temp Pulse Resp BP Pulse Ox O2 Del Method 11/08/22 07:10 36.7 C 86 18 146/76 H 93 Room Air 11/08/22 03:25 36.8 C 87 18 115/65 93 Room Air 11/07/22 23:21 36.6 C 90 18 121/61 93 Room Air Laboratory Results 11/08/22 11/08/22 11/08/22 Range/Units 08:38 08:38 08:11 WBC 17.11 H (4.8-10.8) K/ul RBC 3.89 L (4.20-5.40) M/uL Hgb 12.7 (12.0-16.0) g/dl Hct 38.8 (37.0-47.0) % MCV 99.7 (80.0-100.0) fL MCH 32.6 (25.0-34.0) pg MCHC 32.7 (32.0-36.0) g/dL RDW Std Deviation 49.0 H (36.4-46.3) fL RDW Coeff of Brigette 13.3 (11.5-14.5) % Plt Count 310 (130-400) K/uL MPV 9.5 (9.4-12.4) fL Sodium 139 (136-145) mmol/L Potassium 4.6 (3.5-5.1) mmol/L Chloride 103 (98-107) mmol/L Carbon Dioxide 27 (21-32) mmol/L Anion Gap 9 (3-11) BUN 20 (6-23) mg/dl Creatinine 1.22 H (0.6-1.2) mg/dl Est Cr Clr Drug Dosing 60.4 ml/min Est GFR ( Amer) 54.2 ml/min Est GFR (Non-Af Amer) 46.8 ml/min BUN/Creatinine Ratio 16.4 (10-20) Glucose 132 H (70-99(Fasting)) mg/dl POC Glucose 142 H (70-99) mg/dl Calcium 9.4 (8.6-10.3) mg/dl 11/08/22 11/07/22 11/07/22 Range/Units 00:10 20:36 16:56 WBC (4.8-10.8) K/ul RBC (4.20-5.40) M/uL Hgb (12.0-16.0) g/dl Hct (37.0-47.0) % MCV (80.0-100.0) fL MCH (25.0-34.0) pg MCHC (32.0-36.0) g/dL RDW Std Deviation (36.4-46.3) fL RDW Coeff of Brigette (11.5-14.5) % Plt Count (130-400) K/uL MPV (9.4-12.4) fL Sodium (136-145) mmol/L Potassium (3.5-5.1) mmol/L Chloride (98-107) mmol/L Carbon Dioxide (21-32) mmol/L Anion Gap (3-11) BUN (6-23) mg/dl Creatinine (0.6-1.2) mg/dl Est Cr Clr Drug Dosing ml/min Est GFR ( Amer) ml/min Est GFR (Non-Af Amer) ml/min BUN/Creatinine Ratio (10-20) Glucose (70-99(Fasting)) mg/dl POC Glucose 147 H 166 H 183 H (70-99) mg/dl Calcium (8.6-10.3) mg/dl 11/07/22 Range/Units 13:41 WBC (4.8-10.8) K/ul RBC (4.20-5.40) M/uL Hgb (12.0-16.0) g/dl Hct (37.0-47.0) % MCV (80.0-100.0) fL MCH (25.0-34.0) pg MCHC (32.0-36.0) g/dL RDW Std Deviation (36.4-46.3) fL RDW Coeff of Brigette (11.5-14.5) % Plt Count (130-400) K/uL MPV (9.4-12.4) fL Sodium (136-145) mmol/L Potassium (3.5-5.1) mmol/L Chloride (98-107) mmol/L Carbon Dioxide (21-32) mmol/L Anion Gap (3-11) BUN (6-23) mg/dl Creatinine (0.6-1.2) mg/dl Est Cr Clr Drug Dosing ml/min Est GFR ( Amer) ml/min Est GFR (Non-Af Amer) ml/min BUN/Creatinine Ratio (10-20) Glucose (70-99(Fasting)) mg/dl POC Glucose 184 H (70-99) mg/dl Calcium (8.6-10.3) mg/dl Medications Administered Current Inpatient Medications Acetaminophen (Acetaminophen 500 Mg Tab) 1,000 mg PO Q8 [facility] Stop: 12/07/22 13:59 Last Admin: 11/08/22 05:27 Dose: 1,000 mg Ascorbic Acid (Ascorbic Acid 500 Mg Tab) 500 mg PO BIDM JENNIFER Stop: 12/07/22 16:59 Last Admin: 11/07/22 16:57 Dose: 500 mg Atorvastatin Calcium (Atorvastatin 20 Mg Tab) 20 mg PO HS [facility] Stop: 12/07/22 20:59 Last Admin: 11/07/22 19:32 Dose: 20 mg Bisacodyl (Bisacodyl 10 Mg Supp) 10 mg SC DAILY PRN PRN Reason: Constipation Stop: 12/07/22 13:33 Dexamethasone (Dexamethasone 4 Mg Tab) 8 mg PO TODAY@08 [facility] Stop: 11/08/22 08:01 Docusate Sodium (Docusate Sodium 100 Mg Cap) 100 mg PO BID JENNIFER Stop: 12/07/22 20:59 Last Admin: 11/07/22 19:32 Dose: 100 mg Enoxaparin Sodium (Enoxaparin Inj 30 Mg/0.3 Ml Syr) 30 mg SQ Q12H JENN[facility]ER Stop: 11/30/22 21:59 Last Admin: 11/07/22 21:10 Dose: 30 mg Escitalopram Oxalate (Escitalopram Oxalate 20 Mg Tab) 20 mg PO HS [facility] Stop: 12/07/22 20:59 Last Admin: 11/07/22 19:33 Dose: 20 mg Ferrous Gluconate (Ferrous Gluconate 324 Mg Tab) 324 mg PO BIDM JENNIFER Stop: 12/07/22 16:59 Last Admin: 11/07/22 16:57 Dose: 324 mg Hydromorphone HCl (Hydromorphone Inj 0.5 Mg/0.5 Ml Syr) 0.5 mg IV Q2H PRN PRN Reason: Pain or Pre PT Stop: 11/21/22 13:33 Last Admin: 11/07/22 23:03 Dose: 0.5 mg Hydromorphone HCl (Hydromorphone Inj 1 Mg/Ml Syringe) 1 mg IV Q2H PRN PRN Reason: Pain Stop: 11/21/22 13:33 Last Admin: 11/07/22 19:31 Dose: 1 mg Hydroxyzine HCl (Hydroxyzine Hcl 25 Mg Tab) 25 mg PO BID PRN PRN Reason: Anxiety Stop: 12/07/22 13:33 Sodium Chloride (Nss 1000ml) 1,000 mls @ 15 mls/hr IV .Q24H [facility] Stop: 11/21/22 11:14 Last Admin: 11/07/22 13:49 Dose: Not Given Insulin Aspart (Insulin Aspart Per Unit Charge) 0 units SC ACHS [facility] Stop: 12/07/22 14:14 Last Admin: 11/07/22 21:07 Dose: 2 units Ketorolac Tromethamine (Ketorolac Tromethamine 15 Mg/Ml Vial) 15 mg IV Q6H PRN PRN Reason: Pain Stop: 11/10/22 23:55 Magnesium Hydroxide (Magnesium Hydroxide Susp 30 Ml Udc) 30 ml PO Q6H PRN PRN Reason: Constipation Stop: 12/07/22 13:33 Miscellaneous (Scopolamine Check Patch Placement) 1 each N/A QS [facility] Stop: 11/10/22 07:59 Last Admin: 11/08/22 00:05 Dose: 1 each Miscellaneous (Scopolamine Remove Transderm Patch) 1 each N/A ONE ONE Stop: 11/10/22 08:01 Miscellaneous Information (Pharmacy Glycemic Mgmt Consult) 1 each N/A UD PRN; Protocol PRN Reason: Consult Stop: 12/07/22 13:33 Multivitamins (Multivitamin Tab) 1 tab PO QAM [facility] Stop: 12/08/22 08:59 Naloxone HCl (Naloxone Hcl 0.4 Mg/1 Ml Vial/Carp) 0.1 mg IV Q5M PRN; Protocol PRN Reason: Oversedation/Resp Depression Stop: 11/21/22 11:13 Naloxone HCl (Naloxone Hcl 0.4 Mg/1 Ml Vial/Carp) 0.1 mg IV Q5M PRN PRN Reason: Oversedation/Resp Depression Stop: 12/07/22 13:33 Ondansetron HCl (Ondansetron Inj 2 Mg/Ml 2 Ml Vial) 4 mg IV Q6H PRN PRN Reason: Nausea And Vomiting Stop: 12/07/22 13:33 Oxycodone HCl (Oxycodone Hcl Ir 5 Mg Tab (Immediate Release)) 5 - 10 mg PO Q4H PRN PRN Reason: Pain or Pre PT Stop: 11/21/22 13:33 Last Admin: 11/08/22 05:31 Dose: 10 mg Oxycodone HCl (Oxycodone Hcl 10 Mg Tabcr (Oxycontin)) 10 mg PO Q12H [facility]ENN[facility] Stop: 11/10/22 11:59 Last Admin: 11/08/22 00:51 Dose: 10 mg Sennosides (Senna 8.6 Mg Tab) 17.2 mg PO HS [facility] Stop: 12/07/22 20:59 Last Admin: 11/07/22 19:33 Dose: 17.2 mg Tramadol HCl (Tramadol Hcl 50 Mg Tablet) 50 - 100 mg PO Q4H PRN PRN Reason: Pain & Pre PT Stop: 12/07/22 13:33
[2022-11-08] MEDS: DOCUSATE SODIUM 100 MG CAP PO SCH (07:56)
[2022-11-08] MEDS ORDERED: dexAMETHasone 4 MG TAB PO SCH (08:00)
[2022-11-08] MEDS ORDERED: LANTUS PER UNIT CHARGE SC ONE (08:30)
[2022-11-08] MEDS: INSULIN ASPART PER UNIT CHARGE SC SCH (08:56)
[2022-11-08] MEDS ORDERED: MULTIVITAMIN TAB PO SCH (09:00)
[2022-11-08] MEDS ORDERED: NON-FORMULARY MEDICATION (Apple Cider Vinegar 500 mg Tablet) PO SCH (09:00)
[2022-11-08] MEDS: ENOXAPARIN INJ 30 MG/0.3 ML SYR SQ SCH (09:03)
[2022-11-08 09:17] LABS: Hematocrit (blood only) 38.8 % (37.0-47.0); Hemoglobin 12.7 g/dl (12.0-16.0); Mean Corpuscular Hemoglobin 32.6 pg (25.0-34.0); Mean Corpuscular Hgb Conc 32.7 g/dL (32.0-36.0); Mean Corpuscular Volume 99.7 fL (80.0-100.0); Mean Platelet Volume 9.5 fL (9.4-12.4); Platelet Count 310 K/uL (130-400); RDW Coefficient of Variation 13.3 % (11.5-14.5); Red Blood Count 3.89 M/uL (4.20-5.40); White Blood Count 17.11 K/ul (4.8-10.8)
[2022-11-08 09:34] LABS: BUN Creatinine Ratio 16.4 (10-20); Calcium 9.4 mg/dl (8.6-10.3); Creatinine Clr Calc Pharmacy 60.4 ml/min; Est GFR (African American) 54.2 ml/min; Est GFR (Non-African American) 46.8 ml/min; Potassium 4.6 mmol/L (3.5-5.1)
--- NOTE | 2022-11-08 10:32 | Orthopedic Progress Note ---
Date of Service November 08, 2022 Assessment & Plan (1) Rheumatoid arthritis: Plan: POD #1 s/p L TKA, improved from yesterday, pain controlled with pain medicine. Resume diabetic diet. WBAT LLE with walker. OOB to chair. Adjusted pain control, added OxyContin 10mg BID x 3days, continue Oxycodone and Tylenol as written. Anesthesia to provide adductor block, patient is now agreeable. Checked labs Hgb stable, Creatinine elevated to 1.22 and stopped Toradol. DVT prophylaxis: TEDs 3 weeks, foot pumps while in hospital, Lovenox 30 mg BID x 3weeks start tonight, followed by ASA 81 mg BID for 3 weeks. PT/OT. Change to Silverlon dressing later today. Hospitalist consult for medical management. Pharmacy consult for glycemic control. D/C planning for later today if medically stable. Admission and Anticipated Discharge Date Admission Date: November 07, 2022 Subjective Left knee pain, controlled with pain meds. Ready to go home. Physical Exam Physical Exam: Patient resting comfortably in bed in regular clothes. LLE: Sensation to light touch intact. Moving toes and ankle up & down. BCR < 2 sec. Calf soft and non-tender. Dressing clean, dry, intact. Results & Data Vital Signs (Past 12 Hours) Vital Signs Temp Pulse Resp BP Pulse Ox O2 Del Method 11/08/22 07:10 36.7 C 86 18 146/76 H 93 Room Air 11/08/22 03:25 36.8 C 87 18 115/65 93 Room Air 11/07/22 23:21 36.6 C 90 18 121/61 93 Room Air Diagnostic Findings Laboratory Results WBC 17.11 K/ul (4.8-10.8) H 11/08/22 08:38 RBC 3.89 M/uL (4.20-5.40) L 11/08/22 08:38 Hgb 12.7 g/dl (12.0-16.0) 11/08/22 08:38 Hct 38.8 % (37.0-47.0) 11/08/22 08:38 MCV 99.7 fL (80.0-100.0) 11/08/22 08:38 MCH 32.6 pg (25.0-34.0) 11/08/22 08:38 MCHC 32.7 g/dL (32.0-36.0) 11/08/22 08:38 RDW Std Deviation 49.0 fL (36.4-46.3) H 11/08/22 08:38 RDW Coeff of Brigette 13.3 % (11.5-14.5) 11/08/22 08:38 Plt Count 310 K/uL (130-400) 11/08/22 08:38 MPV 9.5 fL (9.4-12.4) 11/08/22 08:38 ESR 62 mm/hr (0-30) H 11/07/22 05:31 Sodium 139 mmol/L (136-145) 11/08/22 08:38 Potassium 4.6 mmol/L (3.5-5.1) 11/08/22 08:38 Chloride 103 mmol/L (98-107) 11/08/22 08:38 Carbon Dioxide 27 mmol/L (21-32) 11/08/22 08:38 Anion Gap 9 (3-11) 11/08/22 08:38 BUN 20 mg/dl (6-23) 11/08/22 08:38 Creatinine 1.22 mg/dl (0.6-1.2) H 11/08/22 08:38 Est Cr Clr Drug Dosing 60.4 ml/min 11/08/22 08:38 Est GFR ( Amer) 54.2 ml/min 11/08/22 08:38 Est GFR (Non-Af Amer) 46.8 ml/min 11/08/22 08:38 BUN/Creatinine Ratio 16.4 (10-20) 11/08/22 08:38 Glucose 132 mg/dl (70-99(Fasting)) H 11/08/22 08:38 POC Glucose 142 mg/dl (70-99) H 11/08/22 08:11 Calcium 9.4 mg/dl (8.6-10.3) 11/08/22 08:38 SARS-CoV-2, RNA, NAAT NEGATIVE (NEGATIVE) 11/07/22 05:28 Impressions Knee X-Ray 11/07/22 10:25 XR knee LT 1 or 2V routine CLINICAL HISTORY: Surgical Post Op TECHNIQUE: 2 views of the left knee were obtained. Comparison: Comparison is made to knee radiograph 09/18/2022 FINDINGS: Patient is status post total knee arthroplasty with expected postsurgical changes including soft tissue swelling and subcutaneous emphysema. No periarticular lucency or hardware fracture is seen. IMPRESSION: Expected postoperative appearance status post placement of total knee arthroplasty. ACT 112: Negative or not required by law. Electronically signed by: Bhavin Crook M.D. 11/07/2022 3:18 PM
--- NOTE | 2022-11-08 11:57 | Discharge Summary ---
Date of Service November 08, 2022 Discharge Data Consultations 11/07/22 13:34 Consult Hospitalist Routine Procedures Performed Operation Date: 11/07/22 07:00 Actual Procedures p Left Total Knee Arthroplasty(Left) - Jonn Hernandez MD Hospital Course (1) S/P total knee arthroplasty: Patient was admitted to [facility] after undergoing an elective left total knee arthroplasty by Dr. Hernandez on November 07, 2022. His surgery was performed with general anesthetic. She declined spinal anesthesia and a peripheral nerve block. She was given 1750 mg of IV vancomycin for surgical prophylaxis which was continued for 24 hours after surgery. She was given 1 g of TXA preoperatively and 1 g intraoperatively upon closure. Her x- rays performed in the recovery room show a stable joint prosthetic with no hardware or bony complications. She was allowed out of bed, weightbearing as tolerated with the assistance of a walker. Physical therapy and Occupational Therapy consults were placed. Her home medications were continued. Hospitalist consultation was obtained for postoperative medical management. We also obtain a glycemic control consult for management of her diabetes postoperatively. She tolerated a regular diet during her inpatient stay. She did have a lot of postoperative pain last evening and was given IV Toradol, OxyContin, oxycodone, Tylenol and IV Dilaudid. Her pain is well controlled this morning. Her H&H are stable and her BMP is stable except for mildly elevated creatinine. Her Toradol was discontinued and hospitalist commented that this should resolve with adequate hydration, no NSAIDs and follow-up closely as an outpatient. Appointment has been made for a primary care physician on 11/13 and she is to obtain a BMP prior to that appointment. Discharge instructions were reviewed. A Silverlon dressing was placed on her incision on postoperative day 1. She did well with physical therapy and Occupational Therapy and was deemed safe for discharge. She was discharged to her home in stable condition with her on November 08, 2022. Home health was arranged and she will follow-up as scheduled.
== END 2022-11-08 12:39 | disposition home health service (06) ==
LOC: 3E 05:05 → ASU 05:05